=== PATIENT | male | born 1975 | race African-American/Black ===

== ENCOUNTER 2017-04-16 11:56 | Emergency (ER) | payer MEDICAID ==
[~2017-04-16] VITALS: Ht 177.8 cm; Wt 89.9 kg
[2017-04-16 11:59] VITALS: BP 125/81
[2017-04-16] MEDS ORDERED: CEFTRIAXONE 250 MG IM ONE (12:30)
[2017-04-16] MEDS ORDERED: AZITHROMYCIN 500 MG TABLET PO ONE (12:30)
[2017-04-16] MEDS ORDERED: CEFTRIAXONE 250 MG ONE (12:41)
[2017-04-16] MEDS ORDERED: AZITHROMYCIN 250 MG TABLET ONE (12:42)
== END 2017-04-16 14:01 | disposition home or self-care (01) ==
LOC: ED 14:00
DX: N34.2 Other urethritis (principal)
CPT/HCPCS: 81001; 87086; 87491; 87591; 96372; 99284; J0696